=== PATIENT | female | born 1950 | race Caucasian/White ===

== ENCOUNTER → 2019-04-13 | Outpatient (CLI) | payer MEDICARE ==
[~2019-04-13] MED LIST: ASPIRIN EC81 M1 PO; CIPROFLOXACIN500 M1 PO; CIPROFLOXACIN500 M3 PO; CYCLOBENZAPRINE PO; FISH OIL 1,0001 EAC5 PO; FLAGYL500 MG PO; LISINOPRIL-HCT1 EAC1 PO; LISINOPRIL10 MG; LOPRESSOR PO; PERCOCET 5-3251 EACH PO; PRILOSEC 20 MG20 MG PO; TOPROL XL100 MG PO
[2019-04-13 15:57] LABS: CREATININE 1.2 mg/dL (0.6-1.3)
== END ==
LOC: M.CT 15:00
PROVIDERS: Family Medicine
DX: K41.90 Unilateral femoral hernia, without obstruction or gangrene, not specified as recurrent (principal); K43.9 Ventral hernia without obstruction or gangrene; K76.89 Other specified diseases of liver; I70.0 Atherosclerosis of aorta